=== PATIENT | male | born 1935 | race Caucasian/White ===

== ENCOUNTER 2017-10-07 10:01 | Outpatient (CLI) | payer OTHER | END 2017-10-07 14:08 | disposition home or self-care (01) | LOC: RAD 10:01 | DX: R10.13 Epigastric pain (principal) ==

== ENCOUNTER 2018-04-20 08:26 | Outpatient (CLI) | payer OTHER | END 2018-04-20 08:33 | disposition home or self-care (01) | LOC: TOM 08:26 | DX: K46.9 Unspecified abdominal hernia without obstruction or gangrene (principal) ==